=== PATIENT | female | born 1930 | race Caucasian/White ===

== ENCOUNTER 2016-08-16 14:42 | Inpatient (IN) ==
[2016-08-16] MEDS ORDERED: LOPERAMIDE 2 MG CAPSULE PO STA (15:10)
[2016-08-16] MEDS ORDERED: ONDANSETRON 4 MG/2 ML VIAL IV STA (15:10)
[2016-08-16] MEDS ORDERED: SODIUM CHLORIDE 0.9% 2,000 ML IV STA (15:10)
[2016-08-16] MEDS ORDERED: metroNIDAZOLE INJ 500 MG in PREMIX 1 EACH IV STA (15:10)
[2016-08-16] MEDS ORDERED: DICYCLOMINE 20 MG/2 ML AMP IM ONE ×2 (15:10→15:51)
--- NOTE | 2016-08-16 15:19 | Emergency Department Note ---
Arrival - Arrival Chief Complaint: Weakness ED Nursing Triage Note: c/o n/d and weakness for 3 days Mode of Arrival: Stretcher Limitations: No Limitations Source: Patient Time Seen by Provider: 08/16/16 15:10 - History of Present Illness HPI Narrative: This 86-year-old white female custodial resident presents with a week of progressive nausea vomiting and significant diarrhea with prolific loose watery bowel movements. Associated with this has been lower abdominal cramping, low- grade temperature and chills as well as progressive weakness and general. Patient denies melena or bright red blood per rectum. She also denies a history of peptic ulcer disease, diverticulitis, pancreatitis, and inflammatory bowel disease. She does have, however, a history of prior recurrent infectious gastroenteritis. She currently appears chronically ill but in no acute medical distress. Onset (ago): day(s) (Patient presents 3 days post onset of symptoms) Allergies/Adverse Reactions: Allergies Allergy/AdvReac Type Severity Reaction Status Date / Time penicillin G Allergy RASH Verified 07/28/15 09:57 aspirin [From Aggrenox] AdvReac Headache Verified 07/28/15 09:57 dipyridamole [From Aggrenox] AdvReac Headache Verified 07/28/15 09:57 Home Medications: Home Medications Medication Instructions Recorded Confirmed Type Apixaban [Eliquis] 2.5 mg PO 0630,1700 07/28/15 08/16/16 History Brimonidine 0.1% Oph Soln 1 drop BOTH EYES 0630,2100 07/28/15 08/16/16 History [Alphagan P 0.1% Oph Soln] Cholecalciferol (Vitamin D3) 2,000 unit PO DAILY 07/28/15 08/16/16 History [Vitamin D3] Docusate Sodium Cap [Colace Cap] 100 mg PO 0900,2100 07/28/15 08/16/16 History Glimepiride [Amaryl] 2 mg PO 0630 07/28/15 08/16/16 History HYDROcodone/ACETAMIN 5-325 [[place] 1 tablet PO Q6H PRN 07/28/15 08/16/16 History 5-325] LORazepam TAB [Ativan Tab] 0.5 mg PO 0600,1800 07/28/15 08/16/16 History Loratadine [Claritin] 10 mg PO DAILY 07/28/15 08/16/16 History Magnesium Chloride [Magnesium Dr] 64 mg PO BID 07/28/15 08/16/16 History Metformin HCl [Metformin HCl ER] 1,000 mg PO 0630 07/28/15 08/16/16 History Metoprolol Tartrate 50 mg PO DAILY 07/28/15 08/16/16 History Multivitamin [One Daily] 1 each PO DAILY 07/28/15 08/16/16 History Omeprazole 20 mg PO DAILY 07/28/15 08/16/16 History Phenytoin ER Cap [Dilantin Cap] 100 mg PO TID 07/28/15 08/16/16 History Zolpidem [Ambien] 5 mg PO BEDTIME PRN 07/28/15 08/16/16 History Biofreeze 0.2%-3.5% 1 applic TOP BID PRN 08/16/16 08/16/16 History Gel/Jelly(Camphor/Menthol) Buspirone HCl [Buspirone HCl] 15 mg PO 0900,2100 08/16/16 08/16/16 History Cranberry Conc/C/Bacill Coag [Azo 1 each PO DAILY 08/16/16 08/16/16 History Cranberry Tablet] Levothyroxine Sodium 100 mcg PO DAILY 08/16/16 08/16/16 History Magnesium Hydroxide [Milk of 30 ml PO DAILY PRN 08/16/16 08/16/16 History Magnesia] Nitroglycerin Sl Tab [Nitrostat] 0.4 mg SL Q5M PRN 08/16/16 08/16/16 History Ondansetron Tab [Zofran Tab] 8 mg PO DAILY PRN 08/16/16 08/16/16 History Propylene Glycol [Systane Balance] 2 drop BOTH EYES BID 08/16/16 08/16/16 History dimenhyDRINATE [Dimenhydrinate] 50 mg PO Q4H PRN 08/16/16 08/16/16 History Review of System - Review of System 12 point system: reviewed and no additional remarkable complaints except as stated - Review of System Constitutional: Present: as per HPI Gastrointestinal: Present: as per HPI Medical,Surgical,& Family Hx - Medical History Cardio: History of: Hypertension Psychological: History of: Anxiety Disorders, Depression Neurology: History of: Dementia, Seizures HEENT: History of: Glaucoma Endocrine: History of: Diabetes Mellitus (NIDDM), Dyslipidemia, Thyroid Disorder , Endocrine Problems - Surgical History Abdominal Surgeries: Surgical HX of: Cholecystectomy Reproductive Surgeries: Surgical HX of;: Hysterectomy - Social History Smoking Status: Never smoker Frequency of Alcohol Use: None Type of Drug Use: None Exam Physical Examination: GENERAL: Chronically ill-appearing elderly white female in no acute distress. HEENT: Normocephalic. No trauma. Moist mucous membranes. EOMI. PERRLA. ENT NML NECK: Supple. No adenopathy. CARDIAC: Regular. No murmurs. Heart rate 135 CHEST: Clear to auscultation. No respiratory distress. O2 sat 95% ABDOMEN: Soft. Tender lower quadrants with hyperactive bowel sounds. EXTREMITIES: No trauma. Normal ROM. No pedal edema. SKIN: No diaphoresis. No rash. NEURO: Alert. Oriented to person place not so much time. Motor, sensory, vibratory intact. No focal deficits. Vital Signs: Vital Signs Temperature 99.9 F H 08/16/16 14:43 Pulse Rate 147 H 08/16/16 14:43 Respiratory Rate 18 08/16/16 16:02 Blood Pressure 126/99 08/16/16 14:43 O2 Sat by Pulse Oximetry 95 08/16/16 14:43 Course - Reevaluation(s) Reevaluation #1: Discussed with patient the need for admission due to her colitis and new onset atrial fibrillation. - Consultations Consultation #1: Discussed with the hospitalist service who will admit for further evaluation and treatment. Results - Labs CBC & BMP: 08/16/16 15:53 08/16/16 15:53 Labs: I have reviewed the laboratory noted the elevated white blood cell count, depressed potassium, and negative cardiac enzymes. I have also noted the borderline d-dimer. - Impressions EKG: Atrial fibrillation and rapid ventricular response of 140 with evidence of right ventricular hypertrophy and poor R-wave progression anteriorly versus indeterminant aged anterior MD. - Diagnostic Findings Procedure: CT Abdomen and Pelvis: image reviewed by me, report reviewed by me ( Nonspecific colitis, diverticulosis.) Disposition Clinical Impression: Nonspecific colitis, C. difficile, No onset atrial fibrillation, Cystitis Case discussed with: patient Disposition: Still a Patient Condition: Guarded Time of Disposition: 19:55
[2016-08-16] MEDS ORDERED: ONDANSETRON 4 MG/2 ML VIAL ONE (15:50)
[2016-08-16] MEDS ORDERED: LOPERAMIDE 2 MG CAPSULE ONE (15:50)
[2016-08-16] MEDS ORDERED: metroNIDAZOLE 500 MG/100 ML PREMIX IV ONE (15:50)
[2016-08-16 16:01] LABS: Basophils % 0.3 % (0.0-0.8); Eosinophils # 0.1 10*3/uL (0.0-0.87); Eosinophils % 0.6 % (0.00-10.9); Hematocrit 36.8 VOL% (35.7-47.0); Hemoglobin 12.2 GM/DL (12.0-16.0); Immature Granulocytes % 0.9 %; Immature Granulocytes Absolute 0.11 #; Lymphocytes # 0.5 10*3/uL (1.4-4.0); Lymphocytes % 4.1 % (21.3-54.2); Mean Corpuscular HGB Conc 33.2 GM/DL (32-36); Mean Corpuscular Hemoglobin 31 PG (27-34); Mean Corpuscular Volume 93.9 FL (87-102); Mean Platelet Volume 10.4 FL (9.6-12.0); Monocytes # 1.7 10*3/uL (0.11-0.8); Monocytes % 14.1 % (1.7-12.7); Neutrophils # 9.9 10*3/uL (1.4-7.4); Platelet Count 237 T/CUMM (130-400); Red Blood Count 3.92 MC/CUMM (3.8-5.5); Red Cell Distribution Width 13.3 % (9.3-17.3); White Blood Count 12.3 T/CUMM (4-12)
[2016-08-16] MEDS ORDERED: DILTIAZEM 50 MG/10 ML VIAL IV STA (16:04)
--- NOTE | 2016-08-16 16:04 | EKG Report ---
Stationary ECG Study [facility] ER Test Date: 08/16/2016 4:03:18 PM Pat Name: SANTOS XIE Department: Room: 122 Gender: F Tile Roofer: : 1930 Requested by: Steven Ward Order Number: [id number] Reading MD: WILLY ALMANZA Intervals [facility] Rate: 143 P: 999 DC: 0 QRS: 171 QRSD: 129 T: 12 QT: 287 QTc: 370 Interpretive Statements ATRIAL FIBRILLATION WITH RAPID VENTRICULAR RESPONSE WITH ABERRANT CONDUCTION OR VENTRICULAR PREMATURE COMPLEXES POSSIBLE RIGHT VENTRICULAR HYPERTROPHY ANTEROLATERAL MYOCARDIAL INFARCTION, POSSIBLY RECENT Electronically Signed On 08-20-16 17:18:39 CDT by WILLY ALMANZA [email or web address]
[2016-08-16] MEDS ORDERED: DILTIAZEM 50 MG/10 ML VIAL IV ONE (16:05)
[2016-08-16 16:21] LABS: Lactic Acid 2.6 MMOL/L (0.4-2.0)
[2016-08-16 16:24] LABS: Alanine Aminotransferase 10 U/L (13-56); Albumin 2.9 G/DL (3.4-5.0); Alkaline Phosphatase 98 U/L (45-117); Amylase 10 U/L (25-115); Aspartate Amino Transferase 10 U/L (0-37); Blood Urea Nitrogen 19 MG/DL (7-18); Calcium 8.3 MG/DL (8.5-10.1); Glucose 162 MG/DL (74-106); Osmolality,Calculated 280.7 MOS/KG (273-304); Potassium 3.3 MMOL/L (3.5-5.1); Sodium 138 MMOL/L (136-145); Total Protein 6.4 G/DL (6.4-8.3)
[2016-08-16 16:35] LABS: Apearance,Urine Slightly Hazy (Clear); Bacteria,Urine Many /HPF (Few); Bilirubin,Urine Negative (Negative); Blood, Urine Negative (Negative); Glucose,Urine (UA) Negative (Negative); Ketones,Urine Negative (Negative); Mucus,Urine Occasional /LPF (Occasional); Nitrite,Urine Positive (Negative); Protein,Urine Negative; RBC,Urine <1 /HPF (0-4); Squamous Epithelial Cell,Urine Occasional /HPF (0-10); Urine Color Yellow (Yellow); Urine Specific Gravity 1.013 (1.001-1.035); Urine Urobilinogen < 2.0 EU/DL (0.2-1.0); WBC,Urine 8 /HPF (0-6)
[2016-08-16] MEDS ORDERED: DILTIAZEM 100 MG VIAL.ADD IV ONE (16:35)
[2016-08-16] MEDS ORDERED: SODIUM CHLORIDE 0.9% 100 ML IV ONE (16:35)
[2016-08-16] MEDS ORDERED: methylPREDNISolone SOD SUC 125 MG/2 ML VIAL ONE (16:39)
[2016-08-16] MEDS ORDERED: methylPREDNISolone SOD SUC 125 MG/2 ML VIAL IV STA (16:39)
[2016-08-16] MEDS ORDERED: LEVOFLOXACIN INJ 750 MG in PREMIX 1 EACH IV STA (16:53)
[2016-08-16] MEDS ORDERED: LEVOFLOXACIN INJ 150 ML IV ONE (17:11)
[2016-08-16] MEDS ORDERED: ACETAMINOPHEN 500 MG TABLET PO STA (17:15)
[2016-08-16] MEDS ORDERED: ACETAMINOPHEN 500 MG TABLET ONE (17:16)
[2016-08-16 17:50] LABS: Band Neutrophils 2 % (0-10); Lymphocytes 8 % (20-55); Segmented Neutrophils 77 % (50-85); Total Cells Counted 100
[2016-08-16] MEDS ORDERED: LORazepam 2 MG/1 ML VIAL ONE (18:06)
[2016-08-16 18:08] LABS: Platelet Estimate Normal
[2016-08-16] MEDS ORDERED: LORazepam 2 MG/1 ML VIAL IV STA (18:16)
--- NOTE | 2016-08-16 19:14 | CT Report ---
History: Small bowel obstruction. Progressive nausea, vomiting, diarrhea Date: 08/16/2016 Study: CT abdomen and pelvis with contrast Comparison exam: CT abdomen and pelvis February 04, 2012 Technique: Spiral CT sections were obtained from the lung bases to the pubic symphysis following oral contrast and 100 mL Omnipaque [address] exam was performed using one or more of the following dose reduction techniques: Automated exposure control, adjustment of the mA and/or kV according to patient size, or use of iterative reconstruction technique. CT abdomen: There is cardiomegaly. There is mild bilateral pleural effusion. There is no leighann pneumonia. There is cardiomegaly. The gallbladder is surgically absent. There is no focal hepatic mass. There is diffuse pancreatic atrophy. The spleen is unremarkable. There is no adrenal mass. There is bilateral renal excretion without hydronephrosis. There is no aneurysm of the moderately calcified abdominal aorta. There is some mild scattered colon wall thickening compatible with nonspecific colitis. There are some occasional scattered diverticula as well. There is no gross small bowel obstruction. There is no abscess or pneumoperitoneum. There is degenerative disease of the lumbar spine. There is no gross lymphadenopathy CT pelvis: A Mcallister catheter is positioned with its balloon in the lumen of the urinary bladder. There is no obvious soft tissue mass or significant abnormal pelvic fluid. Impression: There is some scattered colon wall thickening, suggesting nonspecific mild colitis. No leighann small bowel obstruction. Diverticulosis. Mild bilateral pleural effusion PROCEDURE INTERPRETED AT [facility] DEPARTMENT OF RADIOLOGY Final Report Signed by: Dr. Arline Bautista
[2016-08-16 19:37] LABS: D-Dimer 0.6 MG/L FEU; PT Patient Result 10.7 SECS
[2016-08-16] MEDS ORDERED: POTASSIUM BICARB EFFERVESCENT 25 MEQ TABLET PO ONE ×2 (19:51→23:30)
--- NOTE | 2016-08-16 21:10 | Hospitalist History & Physical ---
Assessment and Plan - Time spent with patient Time spent with patient: Greater than 30 minutes (1) Atrial fibrillation with rapid ventricular response Status: Acute Assessment and plan: At home she takes Lopressor 50mg daily. She was tachycardic to 140s on arrival to the emergency department and started on a diltiazem infusion. Continue diltiazem infusion at this time. Likely exacerbated secondary to infectious illness and dehydration. Current Visit: Yes (2) Colitis, acute Status: Acute Assessment and plan: Given that she is a shelter resident, was treated with clindamycin in the last 2 weeks, and has leukocytosis and mildly elevated lactate I am highly concerned that she has C. difficile colitis. Treat empirically with metronidazole. She may have a very mild UTI but I will hold further antibiotics other than those targeted to C. difficile until her diarrhea is better controlled so as not to encourage the C. difficile. She received 1 dose of levofloxacin in the emergency department. Hold further Imodium and Bentyl until C. difficile is definitively ruled out so as not to increase her risk of megacolon. C. difficile toxin pending. Current Visit: Yes (3) Dehydration Status: Acute Assessment and plan: Secondary to profuse diarrhea. Hold Lopressor, losartan, HCTZ. Status post 2 L IV fluid bolus in the emergency department continue gentle maintenance infusion. Current Visit: Yes (4) Lactic acidosis Status: Acute Assessment and plan: Very mild, trend with fluids Current Visit: Yes (5) Hypokalemia Status: Acute Assessment and plan: Likely secondary to diarrhea, replace with oral potassium Current Visit: Yes (6) Lower abdominal pain Status: Acute Assessment and plan: Fever secondary to colitis, given nitrite positive UA we will keep UTI in mind. Holding off on antibiotics to target the UTI as above with respect to C. difficile. Current Visit: Yes (7) Seizure disorder Status: Chronic Assessment and plan: Continue home Dilantin. Holding Ativan. Current Visit: Yes (8) Diabetes mellitus Status: Chronic Assessment and plan: Hold home metformin and glimepiride while in the hospital. Serial fingerstick glucose and low-dose lispro sliding scale insulin. Current Visit: No Qualifiers: Diabetes mellitus type: type 2 (9) Hypertension Status: Chronic Assessment and plan: Borderline hypotension at this time, monitor on the diltiazem. hold home losartan HCTZ and Lopressor Current Visit: No Qualifiers: Hypertension type: essential hypertension Qualified Code(s): I10 - Essential (primary) hypertension (10) Hypothyroidism Status: Chronic Assessment and plan: Continue levothyroxine at home dose, check TSH Current Visit: Yes History of Present Illness Chief complaint: Diarrhea History of present illness: Ms. Griffin is a 86 year old female with past medical history of hypertension, diabetes, depression/anxiety, dementia, A. fib, hypothyroidism, seizure disorder , CVA, glaucoma that presented with a complaint of diarrhea. Onset sudden. Duration since Thursday. Severity - very severe with dehydration and too numerous to count episodes daily. Quality mostly liquid and brown with some formed elements. No blood or melena noted. Associated with some central lower abdominal cramping, subjective fevers/chills/generalized weakness. She also endorses nausea and "spitting up" but not necessarily vomiting. She states that this is chronic and ever since she had her stroke 2 years ago she gives a little bit of a confusing history where somebody told her she had a tumor and others told her that she did not in her brain. But she is taking Ativan for this at the shelter. She is a resident of a shelter and at her baseline ambulates with a walker. She just buried her in March. She is a very good historian and able to remember her particular medicines including Eliquis and Dilantin. Upon review of the shelter records from [facility] she was treated with clindamycin starting about 3 weeks ago for cellulitis of her left leg. 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 Her CODE STATUS on the shelter paperwork is full code but in discussing with the patient she indicated that she would not want to be placed on life support machines. When I asked her specifically about chest compressions her response was "if you want to." I recommended to Mrs. Griffin that chest compressions were not likely to restore to her a good quality of life if her heart did indeed stop and she was agreeable to holding these interventions. I called her son and healthcare power of deputy attorney general Hawk Griffin and updated him on her condition. We specifically discussed CODE STATUS and he agreed that a DO NOT RESUSCITATE plan of care was consistent with the mother that he knows. He agreed that this would be her CODE STATUS at this time. Upon arrival to the [place] emergency department she was also noted to have atrial fibrillation with rapid ventricular response and was placed on a diltiazem infusion. She was also given potassium supplement, levofloxacin and metronidazole. I have personally reviewed the workup in the emergency department including data and imaging and I have discussed her case with the emergency room providers. Home Medications Medication Instructions Recorded Confirmed Type Apixaban [Eliquis] 2.5 mg PO 0630,1700 07/28/15 08/16/16 History Brimonidine 0.1% Oph Soln 1 drop BOTH EYES 0630,2100 07/28/15 08/16/16 History [Alphagan P 0.1% Oph Soln] Cholecalciferol (Vitamin D3) 2,000 unit PO DAILY 07/28/15 08/16/16 History [Vitamin D3] Docusate Sodium Cap [Colace Cap] 100 mg PO 0900,2100 07/28/15 08/16/16 History Glimepiride [Amaryl] 2 mg PO 0630 07/28/15 08/16/16 History HYDROcodone/ACETAMIN 5-325 [[place] 1 tablet PO Q6H PRN 07/28/15 08/16/16 History 5-325] LORazepam TAB [Ativan Tab] 0.5 mg PO 0600,1800 07/28/15 08/16/16 History Loratadine [Claritin] 10 mg PO DAILY 07/28/15 08/16/16 History Magnesium Chloride [Magnesium Dr] 64 mg PO BID 07/28/15 08/16/16 History Metformin HCl [Metformin HCl ER] 1,000 mg PO 0630 07/28/15 08/16/16 History Metoprolol Tartrate 50 mg PO DAILY 07/28/15 08/16/16 History Multivitamin [One Daily] 1 each PO DAILY 07/28/15 08/16/16 History Omeprazole 20 mg PO DAILY 07/28/15 08/16/16 History Phenytoin ER Cap [Dilantin Cap] 100 mg PO TID 07/28/15 08/16/16 History Zolpidem [Ambien] 5 mg PO BEDTIME PRN 07/28/15 08/16/16 History Biofreeze 0.2%-3.5% 1 applic TOP BID PRN 08/16/16 08/16/16 History Gel/Jelly(Camphor/Menthol) Buspirone HCl [Buspirone HCl] 15 mg PO 0900,2100 08/16/16 08/16/16 History Cranberry Conc/C/Bacill Coag [Azo 1 each PO DAILY 08/16/16 08/16/16 History Cranberry Tablet] Levothyroxine Sodium 100 mcg PO DAILY 08/16/16 08/16/16 History Magnesium Hydroxide [Milk of 30 ml PO DAILY PRN 08/16/16 08/16/16 History Magnesia] Nitroglycerin Sl Tab [Nitrostat] 0.4 mg SL Q5M PRN 08/16/16 08/16/16 History Ondansetron Tab [Zofran Tab] 8 mg PO DAILY PRN 08/16/16 08/16/16 History Propylene Glycol [Systane Balance] 2 drop BOTH EYES BID 08/16/16 08/16/16 History dimenhyDRINATE [Dimenhydrinate] 50 mg PO Q4H PRN 08/16/16 08/16/16 History Allergies Allergy/AdvReac Type Severity Reaction Status Date / Time penicillin G Allergy RASH Verified 07/28/15 09:57 aspirin [From Aggrenox] AdvReac Headache Verified 07/28/15 09:57 dipyridamole [From Aggrenox] AdvReac Headache Verified 07/28/15 09:57 Medical,Surgical,& Family Hx - Medical History Cardio: History of: Hypertension Psychological: History of: Anxiety Disorders, Depression Neurology: History of: Cerebrovascular Accident, Dementia, Seizures, TIA, Neurologocal Cancer (not currently receiving tx) HEENT: History of: Glaucoma Endocrine: History of: Diabetes Mellitus (NIDDM), Dyslipidemia, Thyroid Disorder , Endocrine Problems Respiratory: History of: Respiratory Problems (She is on 2 L nasal cannula at the shelter) Hematology: History of: Clotting Problems (DVT) - Surgical History Abdominal Surgeries: Surgical HX of: Cholecystectomy Reproductive Surgeries: Surgical HX of;: Hysterectomy Additional Surgical History: Leg surgery - Family History Family History: Reports;: Family Cancer (Mother GI cancer) - Social History Smoking Status: Never smoker Frequency of Alcohol Use: None Type of Drug Use: None Marital Status: Lives With:: care home Functional capacity: uses cane/walker Review of systems: - Constitutional Constitutional: Present: Fever, chills, generalized weakness absent: Night sweats, weight loss - EENT Eyes: Present: Glaucoma absent: Acutely blurry vision Ears: Present: Hard of hearing absent: Acutely decreased hearing, ear pain Nose, mouth and throat: Absent: nasal congestion, sore throat - Cardiovascular Cardiovascular: Present: Palpitations absent: chest pain at rest, chest pain with activity, dyspnea on exertion, edema, orthopnea - Respiratory Respiratory: Absent: cough, dyspnea, hemoptysis - Gastrointestinal Gastrointestinal: Present: Lower abdominal pain, diarrhea, nausea absent: Constipation, dysphagia, hematemesis, hematochezia, melena - Genitourinary Genitourinary: Absent: difficulty urinating, dysuria, hematuria - Musculoskeletal Musculoskeletal: Absent: arthralgias, joint swelling, myalgias - Neurological Neurological: Present: Headache, diabetic neuropathy absent: confusion, dizziness, focal weakness, syncope - Psychiatric Psychiatric: Absent: anxiety, depression - Endocrine Endocrine: Absent: cold intolerance, heat intolerance, polydipsia, polyuria - Hematologic/Lymphatic Hematologic/Lymphatic: Absent: easy bleeding, easy bruising, lymphadenopathy Exam - Constitutional General appearance: other (Elderly white female lying on stretcher pleasant and cooperative) Exam: - Eye Eye exam: Present: EOMI. Absent: conjunctival injection, scleral icterus Pupils: Present: ANUSHA - ENT ENT exam: Present: normal external ear exam, normal oropharynx - Expanded ENT Exam Mouth exam: Present: Dry, poor dentition - Neck Neck exam: Present: normal inspection. Absent: lymphadenopathy, thyromegaly - Respiratory Respiratory exam: Present: Dependently decreased breath sounds, otherwise clear to auscultation bilaterally. Absent: accessory muscle use, rales, rhonchi, wheezes - Cardiovascular Cardiovascular exam: Present: Irregularly irregular rhythm, mild tachycardia. Absent: diastolic murmur, systolic murmur - Expanded Cardiovascular Exam Peripheral pulses: Easily palpable radial pulses, nonpalpable PT pulses bilaterally - GI/Abdominal GI/Abdominal exam: Present: normal bowel sounds, soft, ventral hernia. Absent: distended, hyperactive bowel sounds, hypoactive bowel sounds, organomegaly, tenderness, rebound - Extremities Exam Extremities exam: Present: edema of right lower extremity - Neurological Exam Neurological exam: Present: alert, oriented X3, CN II-XII intact. Absent: motor sensory deficit - Psychiatric Psychiatric exam: Present: normal affect - Skin Skin exam: Present: warm, dry. Absent: diaphoretic, rash Results - Labs CBC & BMP: 08/16/16 15:53 08/16/16 15:53 - EKG EKG shows: tachycardia, atrial fibrillation - Diagnostic Findings Procedure: CT Abdomen and Pelvis: report reviewed by me
[2016-08-16] MEDS ORDERED: GLUCAGON 1 MG VIAL IM PRN (22:10)
[2016-08-16] MEDS ORDERED: NITROGLYCERIN SL 0.4 MG TABLET SL PRN (22:10)
[2016-08-16] MEDS ORDERED: DEXTROSE 50% 25 GM/50 ML VIAL IV PRN (22:10)
[2016-08-16] MEDS ORDERED: ONDANSETRON 4 MG/2 ML VIAL IV PRN (22:10)
[2016-08-16] MEDS: SODIUM CHLORIDE 0.9% 1,000 ML IV SCH (22:56)
[2016-08-16] MEDS: PHENYTOIN ER 100 MG CAPSULE PO SCH (22:57)
[2016-08-16] MEDS: busPIRone 15 MG TABLET PO SCH (22:57)
[2016-08-16] MEDS: metroNIDAZOLE INJ 500 MG in PREMIX 1 EACH IV SCH (22:57)
[2016-08-16] MEDS ORDERED: ENOXAPARIN 100 MG/ML SYRINGE SUBCUT SCH (23:00)
[2016-08-16] MEDS: INSULIN LISPRO 100 UNIT/ML SUBCUT SCH (23:07)
[2016-08-16 23:09] LABS: Magnesium 1.4 MG/DL (1.8-2.4); Thyroid Stimulating Hormone 2.17 uIU/ml (0.358-3.74)
[2016-08-17] MEDS: POLYVINYL ALCOHOL 1.4% OPH SOLN 15 ML BOTTLE BOTH EYES SCH ×3 (00:20→21:17)
[2016-08-17 05:33] LABS: Basophils # 0.1 10*3/uL (0.0-0.2); Basophils % 0.5 % (0.0-0.8); Eosinophils # 0.1 10*3/uL (0.0-0.87); Hematocrit 27.7 VOL% (35.7-47.0); Hemoglobin 9.5 GM/DL (12.0-16.0); Immature Granulocytes Absolute 0.11 #; Lymphocytes # 0.9 10*3/uL (1.4-4.0); Lymphocytes % 7.6 % (21.3-54.2); Mean Corpuscular HGB Conc 34.3 GM/DL (32-36); Mean Corpuscular Hemoglobin 31 PG (27-34); Mean Corpuscular Volume 90.8 FL (87-102); Mean Platelet Volume 10.6 FL (9.6-12.0); Monocytes % 17.2 % (1.7-12.7); Neutrophils # 8.3 10*3/uL (1.4-7.4); Neutrophils % 72.7 % (38.7-73.9); Platelet Count 204 T/CUMM (130-400); Red Blood Count 3.05 MC/CUMM (3.8-5.5); Red Cell Distribution Width 13.3 % (9.3-17.3); White Blood Count 11.5 T/CUMM (4-12)
[2016-08-17] MEDS ORDERED: MAGNESIUM SULF RIDER 2 GM in PREMIX 1 EACH IV ONE (05:48)
[2016-08-17 06:06] LABS: Albumin 2.1 G/DL (3.4-5.0); Bilirubin,Total 0.6 MG/DL (0.2-1.0); Calcium 7.2 MG/DL (8.5-10.1); Osmolality,Calculated 277.5 MOS/KG (273-304); Potassium 2.9 MMOL/L (3.5-5.1); Total Protein 4.5 G/DL (6.4-8.3)
[2016-08-17 06:44] LABS: Band Neutrophils 5 % (0-10); Lymphocytes 3 % (20-55); Platelet Estimate Normal; Segmented Neutrophils 81 % (50-85)
[2016-08-17 06:45] LABS: Total Cells Counted 100
[2016-08-17] MEDS: metroNIDAZOLE INJ 500 MG in PREMIX 1 EACH IV SCH (07:40)
[2016-08-17] MEDS: INSULIN LISPRO 100 UNIT/ML SUBCUT SCH ×4 (08:09→21:22)
--- NOTE | 2016-08-17 08:43 | EKG Report ---
Stationary ECG Study [facility] Test Date: 08/17/2016 7:44:04 AM Pat Name: SANTOS XIE Department: Room: 122 Gender: F Slot Floor Person: GIN : 1930 Requested by: Jones Brambila Order Number: [id number] Reading MD: WILLY ALMANZA Intervals [address] Rate: 96 P: 999 [place]: 0 QRS: 157 QRSD: 141 T: -3 QT: 403 QTc: 456 Interpretive Statements ATRIAL FIBRILLATION MARKED RIGHT AXIS DEVIATION INTRAVENTRICULAR CONDUCTION DELAY ANTERIOR-LATERAL MYOCARDIAL INFARCTION, AGE UNKNOWN Electronically Signed On 08-21-16 09:26:54 CDT by WILLY ALMANZA [email or web address]
[2016-08-17] MEDS ORDERED: PANTOPRAZOLE 40 MG TABLET PO SCH (09:00)
--- NOTE | 2016-08-17 09:02 | XRay Report ---
History: Shortness of breath Date: 08/17/2016 Study: Chest x-ray AP portable Comparison exam: July 28, 2015 chest x-ray There is mild cardiomegaly. The mediastinal contours are stable. There is moderate aortic arch calcification. The pulmonary vasculature is not engorged. The lungs are generally clear for shallow breath. There is no gross pleural effusion. There is osteopenia and mild thoracic spondylosis. Impression: No acute cardiopulmonary process. Mild cardiomegaly PROCEDURE INTERPRETED AT [facility] DEPARTMENT OF RADIOLOGY Final Report Signed by: Dr. Arline Bautista
[2016-08-17] MEDS: PHENYTOIN ER 100 MG CAPSULE PO SCH ×3 (09:59→21:17)
[2016-08-17] MEDS: LEVOTHYROXINE 100 MCG TABLET PO SCH (09:59)
[2016-08-17] MEDS: busPIRone 15 MG TABLET PO SCH ×2 (09:59→21:17)
--- NOTE | 2016-08-17 11:20 | Hospitalist Progress Note ---
Assessment and Plan (1) Clostridium difficile colitis Status: Acute Assessment and plan: Impression: 1. C. difficile colitis, present on admission 2. Atrial fibrillation with controlled ventricular rate 3. 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 We will continue metronidazole for the C. difficile colitis. This note was completed using [employer] voice recognition software. There may be kettle fry cook operator errors as a result. Current Visit: Yes Hospitalist: Subjective Interval history: Follow-up C. difficile colitis. The [facility] the [facility], following a cerebral infarction. She says that she has received a few courses of antibiotics over the past few months. She developed some diarrhea about a week ago, and finally presented here. She was ultimately found to have C. difficile colitis. 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 She also reports a history of a "brain tumor," and is apparently seen neurology here and in [place] for evaluation of that. Review of our records here shows that the CT scan performed last year shows some old cerebral infarctions, but no evidence of any sort of brain tumor. She reports a history of 2 cerebral infarcts, and several TIAs. She has been stable in the ICU. Ventricular rate has been about 100 or so. She received a bolus of IV diltiazem, but did not require an infusion. Exam - Constitutional Vitals: Period Temp Pulse Resp BP Sys/Bryant Pulse Ox Last 24 Hr 97 F-98.9 F 84-99 17-31 108-131/38-90 94-99 She is afebrile. Heart is irregular with a soft systolic murmur. Chest is clear. Abdomen soft and moderately tender with no mass. She is awake and alert, and moves all 4 extremities. Results - Labs CBC & BMP: 08/17/16 05:02 08/17/16 05:02 - EKG EKG shows: atrial fibrillation (Atrial fibrillation with ventricular rate of about 100 and nonspecific intraventricular conduction delay.) Quality Measures - VTE Contraindication to Pharmacological VTE Prophylaxis: Already on Theraputic Agent , No Prophylaxis Needed Contraindication to Mechanical VTE Prophylaxis: Current Diagnosis of DVT
[2016-08-17] MEDS: metroNIDAZOLE 500 MG TABLET PO SCH ×3 (12:25→21:17)
[2016-08-17] MEDS: SODIUM CHLORIDE 0.9% 1,000 ML IV SCH (12:45)
[2016-08-17] MEDS ORDERED: MENTHOL TOP PRN (13:24)
[2016-08-17] MEDS ORDERED: dimenhyDRINATE 50 MG TABLET PO PRN (13:24)
[2016-08-17] MEDS ORDERED: CAMPHOR TOP PRN (13:24)
[2016-08-17] MEDS ORDERED: MAGNESIUM HYDROXIDE SUSP 30 ML UDCUP PO PRN (13:24)
[2016-08-17] MEDS ORDERED: ZALEPLON 5 MG CAPSULE PO PRN (13:24)
[2016-08-17] MEDS ORDERED: [UNRECOGNIZED DRUG - OTHER] TOP PRN (13:24)
[2016-08-17] MEDS ORDERED: ONDANSETRON 4 MG TABLET PO PRN (13:24)
[2016-08-17] MEDS ORDERED: PHENYTOIN ER 100 MG CAPSULE PO SCH (15:00)
[2016-08-17] MEDS: ACETAMINOPHEN 325 MG TABLET PO PRN (15:18)
[2016-08-17] MEDS: DESITIN 4OZ/NYSTATIN 15 GRAM MIXTURE PASTE TOP SCH ×2 (17:15→21:23)
[2016-08-17] MEDS: APIXABAN 2.5 MG TABLET PO SCH (17:15)
[2016-08-17] MEDS: LORazepam 0.5 MG TABLET PO SCH (17:15)
[2016-08-17] MEDS: MAGNESIUM CHLORIDE 64 MG TABLET PO SCH (21:17)
[2016-08-17] MEDS: BRIMONIDINE 0.1% OPH SOLN 5 ML BOTTLE BOTH EYES SCH (21:18)
[2016-08-17] MEDS: DOCUSATE SODIUM 100 MG CAPSULE PO SCH (21:20)
[2016-08-18] MEDS: metFORMIN 500 MG TABLET PO SCH (06:18)
[2016-08-18] MEDS: GLIMEPIRIDE 2 MG TABLET PO SCH (06:19)
[2016-08-18] MEDS: LORazepam 0.5 MG TABLET PO SCH ×2 (06:19→17:19)
[2016-08-18] MEDS: APIXABAN 2.5 MG TABLET PO SCH ×2 (06:19→17:19)
[2016-08-18] MEDS: BRIMONIDINE 0.1% OPH SOLN 5 ML BOTTLE BOTH EYES SCH ×2 (06:27→21:26)
[2016-08-18] MEDS ORDERED: METOPROLOL TARTRATE 50 MG TABLET PO SCH (09:00)
[2016-08-18] MEDS: LEVOTHYROXINE 100 MCG TABLET PO SCH (09:02)
[2016-08-18] MEDS: MULTIVITAMIN (CENTRUM) TABLET PO SCH (09:02)
[2016-08-18] MEDS: POLYVINYL ALCOHOL 1.4% OPH SOLN 15 ML BOTTLE BOTH EYES SCH ×2 (09:02→21:26)
[2016-08-18] MEDS: DOCUSATE SODIUM 100 MG CAPSULE PO SCH ×2 (09:02→21:29)
[2016-08-18] MEDS: busPIRone 15 MG TABLET PO SCH ×2 (09:02→21:28)
[2016-08-18] MEDS: PHENYTOIN ER 100 MG CAPSULE PO SCH ×3 (09:03→21:28)
[2016-08-18] MEDS: metroNIDAZOLE 500 MG TABLET PO SCH ×3 (09:03→21:28)
[2016-08-18] MEDS: PANTOPRAZOLE 40 MG TABLET PO SCH (09:03)
[2016-08-18] MEDS: MAGNESIUM CHLORIDE 64 MG TABLET PO SCH ×2 (09:03→21:28)
[2016-08-18] MEDS: DESITIN 4OZ/NYSTATIN 15 GRAM MIXTURE PASTE TOP SCH ×2 (09:04→21:39)
[2016-08-18] MEDS: INSULIN LISPRO 100 UNIT/ML SUBCUT SCH ×4 (09:04→21:29)
[2016-08-18] MEDS ORDERED: POTASSIUM CHLORIDE 20 MEQ TABLET PO PRN (10:32)
[2016-08-18] MEDS ORDERED: POTASSIUM CHLORIDE RIDER 10 MEQ in PREMIX 1 EACH IV PRN (10:33)
--- NOTE | 2016-08-18 10:34 | Hospitalist Progress Note ---
<Tye Poe - Last Filed: 08/18/16 11:05> Assessment and Plan (1) Clostridium difficile colitis Status: Acute Assessment and plan: Pt. on contact precautions. Pt. still complains of diarrhea. Last stool this am. Pt. states they have started to become more formed. Pt on PO flagyl. Pt.'s diet will be advanced to full liquid. Current Visit: Yes (2) Atrial fibrillation with rapid ventricular response Status: Acute Assessment and plan: Pt's rate is controlled. She is on anticoagulation. Current Visit: Yes (3) Hypokalemia Status: Acute Assessment and plan: K+ is 2.9 from labs on 08/17. Will order stat BMP to assess today's level. K+ replacement put in place. Recheck in am and replace if needed. Will continue to monitor. Current Visit: Yes (4) Diabetes mellitus Status: Chronic Assessment and plan: SSI ordered. Will continue to monitor. Current Visit: No Qualifiers: Diabetes mellitus type: type 2 (5) Hypertension Status: Chronic Assessment and plan: Pt's blood pressure has been stable. Will continue to monitor. Current Visit: No Qualifiers: Hypertension type: essential hypertension Qualified Code(s): I10 - Essential (primary) hypertension Hospitalist: Subjective Interval history: Pt. seen and examined. No apparent distress noted. No complaints overnight but pt has had diarrhea stool this am. K+ low this am. Will replace. Pt is inquiring about advancing diet. Will see how patient tolerates full liquids. Exam - Constitutional Vitals: Period Temp Pulse Resp BP Sys/Bryant Pulse Ox Last 24 Hr 97.7 F-99.5 F 78-96 18-25 109-137/46-96 94-99 General appearance: normal weight, no acute distress - Head Head exam: Present: normal inspection, normocephalic - Eye Eye exam: Present: EOMI Pupils: Present: ANUSHA - ENT ENT exam: Present: other (heard of hearing) - Neck Neck exam: Present: normal inspection - Respiratory Respiratory exam: Present: clear to auscultation bilaterally - Cardiovascular Cardiovascular exam: Present: irregular rhythm - GI/Abdominal GI/Abdominal exam: Present: normal bowel sounds, soft. Absent: tenderness - Extremities Exam Extremities exam: Present: normal capillary refill, full ROM. Absent: edema - Neurological Exam Neurological exam: Present: alert, oriented X3, normal gait - Psychiatric Psychiatric exam: Present: normal affect, normal mood - Skin Skin exam: Present: normal color, warm, dry Results - Labs CBC & BMP: 08/17/16 05:02 08/17/16 05:02 Lab Results: I have reviewed the past 24 hour labs Quality Measures - VTE Contraindication to Pharmacological VTE Prophylaxis: Already on Theraputic Agent , No Prophylaxis Needed Contraindication to Mechanical VTE Prophylaxis: Current Diagnosis of DVT <Yeimi Rao - Last Filed: 08/18/16 15:42> Assessment and Plan (1) Clostridium difficile colitis Status: Acute Assessment and plan: Continue Flagyl p.o. 3 times daily, restart IV fluids with potassium supplementation Current Visit: Yes (2) Hypokalemia Status: Acute Assessment and plan: Continue IV and p.o. supplementation recheck potassium in a.m. Current Visit: Yes (3) Diabetes mellitus Status: Chronic Assessment and plan: Amaryl 2 mg p.o. daily, blood sugars between 91 and 211, continue metformin for now but monitor creatinine. Current Visit: No Qualifiers: Diabetes mellitus type: type 2 (4) Hypertension Status: Chronic Assessment and plan: Continue metoprolol 50 twice daily, blood pressure controlled Current Visit: No Qualifiers: Hypertension type: essential hypertension Qualified Code(s): I10 - Essential (primary) hypertension (5) Dementia Status: Acute Current Visit: No (6) Atrial fibrillation Status: Acute Assessment and plan: Rate controlled on metoprolol and continue Eliquis Current Visit: No (7) Seizure disorder Status: Chronic Assessment and plan: Continue Dilantin 100 mg p.o. 3 times daily Current Visit: Yes (8) Hypothyroidism Status: Chronic Assessment and plan: Continue levothyroxine at 100 g daily Current Visit: Yes Hospitalist: Subjective Interval history: Patient seen and examined. Progress note is reviewed and edited. Patient is still having diarrhea but that is improving. She was not on IV fluids when I walked into the room but this needs to be restarted. Her potassium is extremely low. Patient is from a correction. Exam - Constitutional Vitals: Period Temp Pulse Resp BP Sys/Bryant Pulse Ox Last 24 Hr 97.7 F-99.5 F 76-92 18-20 109-137/46-72 96-99 - Neurological Exam Neurological exam: Present: oriented X3 (2) Results - Labs CBC & BMP: 08/18/16 10:52 08/18/16 10:52 - Diagnostic Findings Procedure: Chest x-ray: report reviewed by me (Nothing acute mild cardiomegaly)
[2016-08-18 11:07] LABS: Basophils # 0.1 10*3/uL (0.0-0.2); Basophils % 0.4 % (0.0-0.8); Eosinophils # 0.4 10*3/uL (0.0-0.87); Eosinophils % 3.1 % (0.00-10.9); Hematocrit 32.6 VOL% (35.7-47.0); Hemoglobin 10.8 GM/DL (12.0-16.0); Immature Granulocytes % 0.9 %; Immature Granulocytes Absolute 0.11 #; Lymphocytes # 0.9 10*3/uL (1.4-4.0); Lymphocytes % 7.2 % (21.3-54.2); Mean Corpuscular HGB Conc 33.1 GM/DL (32-36); Mean Corpuscular Hemoglobin 31 PG (27-34); Mean Corpuscular Volume 93.7 FL (87-102); Mean Platelet Volume 10.2 FL (9.6-12.0); Monocytes # 1.1 10*3/uL (0.11-0.8); Monocytes % 9.4 % (1.7-12.7); Neutrophils # 9.5 10*3/uL (1.4-7.4); Platelet Count 247 T/CUMM (130-400); Red Blood Count 3.48 MC/CUMM (3.8-5.5); Red Cell Distribution Width 13.4 % (9.3-17.3)
[2016-08-18 11:30] LABS: Band Neutrophils 3 % (0-10); Eosinophils 2 % (0-10); Lymphocytes 6 % (20-55); Platelet Estimate Adequate; Segmented Neutrophils 78 % (50-85); Total Cells Counted 100
[2016-08-18 11:31] LABS: Hypochromasia 1+
[2016-08-18 11:43] LABS: Calcium 7.3 MG/DL (8.5-10.1); Magnesium 1.9 MG/DL (1.8-2.4); Osmolality,Calculated 284.5 MOS/KG (273-304); Potassium 2.9 MMOL/L (3.5-5.1)
[2016-08-18] MEDS ORDERED: TUBERCULIN SKIN TEST 0.1 ML SYRINGE INTRADERM ONE (11:51)
[2016-08-18] MEDS ORDERED: ALBUTEROL 0.63 MG/3 ML NEB RESP TX SCH (15:00)
[2016-08-18] MEDS: POTASSIUM CHLORIDE 20 MEQ TABLET PO SCH ×3 (16:00→19:34)
[2016-08-18] MEDS: POTASSIUM CHLORIDE INJ 40 MEQ in SODIUM CHLORIDE 0.45% 1,000 ML IV SCH (17:19)
[2016-08-18] MEDS: METOPROLOL TARTRATE 50 MG TABLET PO SCH (21:27)
[2016-08-19] MEDS: POTASSIUM CHLORIDE INJ 40 MEQ in SODIUM CHLORIDE 0.45% 1,000 ML IV SCH ×5 (03:28→23:19)
[2016-08-19 05:57] LABS: Calcium 7.5 MG/DL (8.5-10.1); Magnesium 1.9 MG/DL (1.8-2.4); Osmolality,Calculated 277.4 MOS/KG (273-304); Potassium 3.5 MMOL/L (3.5-5.1)
[2016-08-19] MEDS: LORazepam 0.5 MG TABLET PO SCH ×2 (06:15→21:42)
[2016-08-19] MEDS: metFORMIN 500 MG TABLET PO SCH (06:15)
[2016-08-19] MEDS: APIXABAN 2.5 MG TABLET PO SCH ×2 (06:15→16:51)
[2016-08-19] MEDS: GLIMEPIRIDE 2 MG TABLET PO SCH (06:15)
[2016-08-19] MEDS: BRIMONIDINE 0.1% OPH SOLN 5 ML BOTTLE BOTH EYES SCH ×2 (09:09→21:43)
[2016-08-19] MEDS: INSULIN LISPRO 100 UNIT/ML SUBCUT SCH ×4 (09:09→21:43)
[2016-08-19] MEDS: POLYVINYL ALCOHOL 1.4% OPH SOLN 15 ML BOTTLE BOTH EYES SCH ×2 (09:09→21:42)
[2016-08-19] MEDS: MAGNESIUM CHLORIDE 64 MG TABLET PO SCH ×2 (09:10→21:41)
[2016-08-19] MEDS: LEVOTHYROXINE 100 MCG TABLET PO SCH (09:10)
[2016-08-19] MEDS: PHENYTOIN ER 100 MG CAPSULE PO SCH ×3 (09:10→21:42)
[2016-08-19] MEDS: MULTIVITAMIN (CENTRUM) TABLET PO SCH (09:10)
[2016-08-19] MEDS: PANTOPRAZOLE 40 MG TABLET PO SCH (09:11)
[2016-08-19] MEDS: DOCUSATE SODIUM 100 MG CAPSULE PO SCH ×2 (09:11→21:41)
[2016-08-19] MEDS: METOPROLOL TARTRATE 50 MG TABLET PO SCH ×2 (09:12→21:42)
[2016-08-19] MEDS: busPIRone 15 MG TABLET PO SCH ×2 (09:12→21:42)
[2016-08-19] MEDS: DESITIN 4OZ/NYSTATIN 15 GRAM MIXTURE PASTE TOP SCH ×2 (09:12→21:41)
[2016-08-19] MEDS: metroNIDAZOLE 500 MG TABLET PO SCH ×3 (09:12→21:41)
--- NOTE | 2016-08-19 13:46 | Hospitalist Progress Note ---
Assessment and Plan (1) Clostridium difficile colitis Status: Acute Assessment and plan: Continue Flagyl p.o. 3 times daily, cont IV fluids with potassium supplementation Current Visit: Yes (2) Hypokalemia Status: Acute Assessment and plan: Resolved with replacement recheck in a.m. Current Visit: Yes (3) Diabetes mellitus Status: Chronic Assessment and plan: Continue metformin and Amaryl Current Visit: No Qualifiers: Diabetes mellitus type: type 2 (4) Hypertension Status: Chronic Assessment and plan: Continue metoprolol 50 twice daily, blood pressure controlled Current Visit: No Qualifiers: Hypertension type: essential hypertension Qualified Code(s): I10 - Essential (primary) hypertension (5) Dementia Status: Acute Current Visit: No (6) Atrial fibrillation Status: Acute Assessment and plan: Rate controlled on metoprolol and continue Eliquis Current Visit: No (7) Seizure disorder Status: Chronic Assessment and plan: Continue Dilantin 100 mg p.o. 3 times daily Current Visit: Yes (8) Hypothyroidism Status: Chronic Assessment and plan: Continue levothyroxine at 100 g daily Current Visit: Yes (9) UTI (urinary tract infection) Status: Acute Assessment and plan: three days of cipro Current Visit: Yes Hospitalist: Subjective Interval history: patient still rate controlled afib, bowel movements have slowed down and she is starting to eat. We can probably go back to NH in am. Sat up in chair Exam - Constitutional Vitals: Period Temp Pulse Resp BP Sys/Bryant Pulse Ox Last 24 Hr 97.3 F-99.6 F 76-91 16-20 128-141/67-87 96-98 Exam: Heart Rate-[IRR] Lungs-[CTAB] GI-[+bs soft, NT] Ext-[no edema] Neuro [Motor 5/5], [alert and oriented times 2] psych [normal mood and affect] General [no acute distress] Results - Labs CBC & BMP: 08/18/16 10:52 08/19/16 05:08 Lab Results: I have reviewed the past 24 hour labs Labs: Urine culture positive for E. coli Quality Measures - VTE Contraindication to Pharmacological VTE Prophylaxis: Already on Theraputic Agent , No Prophylaxis Needed Contraindication to Mechanical VTE Prophylaxis: Current Diagnosis of DVT
[2016-08-19] MEDS: CIPROFLOXACIN 250 MG TABLET PO SCH ×2 (14:43→21:42)
[2016-08-20 05:26] LABS: Calcium 7.6 MG/DL (8.5-10.1); Osmolality,Calculated 274.5 MOS/KG (273-304); Potassium 4.4 MMOL/L (3.5-5.1)
[2016-08-20] MEDS: BRIMONIDINE 0.1% OPH SOLN 5 ML BOTTLE BOTH EYES SCH (05:44)
[2016-08-20] MEDS: APIXABAN 2.5 MG TABLET PO SCH (05:45)
[2016-08-20] MEDS: GLIMEPIRIDE 2 MG TABLET PO SCH (05:45)
[2016-08-20] MEDS: metFORMIN 500 MG TABLET PO SCH (05:45)
[2016-08-20] MEDS: LORazepam 0.5 MG TABLET PO SCH (05:45)
[2016-08-20] MEDS: INSULIN LISPRO 100 UNIT/ML SUBCUT SCH ×2 (09:19→12:48)
[2016-08-20] MEDS: busPIRone 15 MG TABLET PO SCH (09:24)
[2016-08-20] MEDS: POLYVINYL ALCOHOL 1.4% OPH SOLN 15 ML BOTTLE BOTH EYES SCH (09:24)
[2016-08-20] MEDS: PHENYTOIN ER 100 MG CAPSULE PO SCH (09:25)
[2016-08-20] MEDS: MULTIVITAMIN (CENTRUM) TABLET PO SCH (09:25)
[2016-08-20] MEDS: CIPROFLOXACIN 250 MG TABLET PO SCH (09:25)
[2016-08-20] MEDS: metroNIDAZOLE 500 MG TABLET PO SCH (09:26)
[2016-08-20] MEDS: PANTOPRAZOLE 40 MG TABLET PO SCH (09:26)
[2016-08-20] MEDS: METOPROLOL TARTRATE 50 MG TABLET PO SCH (09:26)
[2016-08-20] MEDS: MAGNESIUM CHLORIDE 64 MG TABLET PO SCH (09:26)
[2016-08-20] MEDS: DESITIN 4OZ/NYSTATIN 15 GRAM MIXTURE PASTE TOP SCH (09:26)
[2016-08-20] MEDS: DOCUSATE SODIUM 100 MG CAPSULE PO SCH (09:27)
[2016-08-20] MEDS: LEVOTHYROXINE 100 MCG TABLET PO SCH (09:27)
--- NOTE | 2016-08-20 09:57 | Discharge Summary ---
<Tye Poe - Last Filed: 08/20/16 10:22> Hospital Course - Hospital Course Hospital Course: Ms. Griffin is a 86-year-old white female half-way resident with a history of infectious gastroenteritis, afib, UTI, htn, hyperlipidemia, dementia, and depression that presented to the ED on with a week of progressive nausea vomiting and significant diarrhea with prolific loose watery bowel movements. Pt. was also noted to have lower abdominal cramping, low-grade temperature and chills as well as progressive weakness and general. The patient was admitted for further evaluation. Pt was given a diltizaem push for rate control of afib and it has since been controlled. Pt was also placed on contact precautions and treated for clostridium difficile colitis with antibiotic therapy (Flagyl) and IVF. Pt. was also treated for hypokalemia which has since resolved. Pt. is stable now and has started to eat. She will be discharged back to the half-way. Diagnosis - Discharge Diagnosis (1) Clostridium difficile colitis Status: Acute (2) Atrial fibrillation with rapid ventricular response Status: Acute (3) Hypokalemia Status: Acute (4) Diabetes mellitus Status: Chronic (5) Hypertension Status: Chronic Discharge Plan - Discharge Data Disposition: Disch/Xfer to Snf - Discharge Medications New Potassium Chloride Cap/Tab [K Dur] 20 meq PO DAILY #7 tablet Vancomycin HCl [Vancomycin Cap] 125 mg PO Q6H #40 capsule metroNIDAZOLE TAB [Flagyl Cap/Tab] 500 mg PO TID #30 tablet Acetaminophen Tab [Tylenol Tab] 325 mg PO Q4H PRN #0 tablet PRN Reason: fever, headache/body aches Ciprofloxacin Tab [Cipro Tab] 250 mg PO BID #6 tablet Continue Brimonidine 0.1% Oph Soln [Alphagan P 0.1% Oph Soln] 1 drop BOTH EYES 0630, 2100 Magnesium Chloride [Magnesium Dr] 64 mg PO BID Loratadine [Claritin] 10 mg PO DAILY Multivitamin [One Daily] 1 each PO DAILY Cholecalciferol (Vitamin D3) [Vitamin D3] 2,000 unit PO DAILY Glimepiride [Amaryl] 2 mg PO 0630 Metformin HCl [Metformin HCl ER] 1,000 mg PO 0630 Apixaban [Eliquis] 2.5 mg PO 0630,1700 Phenytoin ER Cap [Dilantin Cap] 100 mg PO TID Docusate Sodium Cap [Colace Cap] 100 mg PO 0900,2100 Magnesium Hydroxide [Milk of Magnesia] 30 ml PO DAILY PRN PRN Reason: Constipation Nitroglycerin Sl Tab [Nitrostat] 0.4 mg SL Q5M PRN PRN Reason: Chest Pain Buspirone HCl 15 mg PO 0900,2100 Cranberry Conc/C/Bacill Coag [Azo Cranberry Tablet] 1 each PO DAILY Propylene Glycol [Systane Balance] 2 drop BOTH EYES BID Biofreeze 0.2%-3.5% Gel/Jelly(Camphor/Menthol) 1 applic TOP BID PRN PRN Reason: Pain HYDROcodone/ACETAMIN 5-325 [[place] 5-325] 1 tablet PO Q6H PRN #30 PRN Reason: Pain Zolpidem [Ambien] 5 mg PO BEDTIME PRN #30 PRN Reason: Insomnia Ondansetron Tab [Zofran Tab] 8 mg PO DAILY PRN PRN Reason: Nausea/Vomiting Levothyroxine Sodium 100 mcg PO DAILY LORazepam TAB [Ativan Tab] 0.5 mg PO 0600,1800 #60 Changed Metoprolol Tartrate 50 mg PO BID #60 Omeprazole 40 mg PO BID #60 Discontinued dimenhyDRINATE [Dimenhydrinate] 50 mg PO Q4H PRN PRN Reason: Nausea/Vomiting - Follow Up or Referral - Forms/Instructions Exam - Constitutional Vitals: Period Temp Pulse Resp BP Sys/Bryant Pulse Ox Last 24 Hr 96.7 F-98.8 F 64-77 18-20 120-161/61-80 94-100 Discharge Results Procedures and tests throughout hospitalization: Pending Orders 08/16/16 22:34 Blood Culture Routine 08/21/16 04:00 CBC [Comp Blood Count Auto Diff] IN AM Labs on day of discharge: Labs from last 24 hours 08/20/16 08/20/16 08/19/16 07:31 04:33 19:56 Sodium 139 Potassium 4.4 Chloride 109 H Carbon Dioxide 24 Anion Gap 10.4 BUN 11 Creatinine 0.70 GFR Calculation 82 BUN/Creatinine Ratio 15.00 Glucose 84 POC Glucose 124 H 214 H Calculated Osmolality 274.5 Calcium 7.6 L 08/19/16 08/19/16 15:12 11:28 Sodium Potassium Chloride Carbon Dioxide Anion Gap BUN Creatinine GFR Calculation BUN/Creatinine Ratio Glucose POC Glucose 246 H 289 H Calculated Osmolality Calcium Preliminary micro results at discharge 08/16/16 22:34 Blood Culture - Preliminary Blood No growth at 3 days 08/16/16 22:34 Blood Culture - Preliminary Blood No growth at 3 days DS: Provider Date of admission: 08/16/16 20:37 Primary care physician: . No PCP Attending physician on admission: Burton Gomez MD Consults: 08/18/16 11:51 Consult to Physical Therapy [CONS] Routine Reason for Physical Therapy: Weakness Discharging clinician: Tye Poe NP <Yeimi Rao - Last Filed: 08/20/16 11:25> Hospital Course - Hospital Course Hospital Course: Patient seen and examined. Hospital course reviewed and edited. Patient was diagnosed with C. difficile colitis. She was treated with p.o. Flagyl. Urine culture obtained on 08/16/16 grew out E. coli sensitive to Cipro. Because she currently has C. difficile and only can treat her for 3 days. I will add p.o. vancomycin every 6 hours for 10 days. Patient's potassium was low due to diarrhea. Her blood sugars are not well controlled. She is currently on metformin and Amaryl. She is eating better today. Her atrial fib is rate controlled on metoprolol. She is currently on Eliquis. She is mildly anemic but it stable. She does have dementia and seizure disorder both of which are stable. Patient will return to the half-way today. She is still having diarrhea about 3 times a day. Because we are adding Cipro the diarrhea may temporarily get worse. Continue Flagyl for 10 more days and po vancomycin for 10 days. - Time spent with patient Time with patient DS: Greater than 30 minutes (50 min) Diagnosis - Discharge Diagnosis (1) Clostridium difficile colitis Status: Acute (2) Hypokalemia Status: Acute (3) Diabetes mellitus Status: Chronic (4) Hypertension Status: Chronic (5) Dementia Status: Acute (6) Atrial fibrillation Status: Acute (7) Seizure disorder Status: Chronic (8) Hypothyroidism Status: Chronic (9) UTI (urinary tract infection) Status: Acute Discharge Plan - Discharge Data Condition at Discharge: Stable Discharge Diet: diabetic diet Activity: resume usual activities as tolerated Hygiene: no restrictions Weight Bearing at Discharge: full weight bearing Exam - Constitutional General appearance: normal weight, no acute distress - Respiratory Respiratory exam: Present: clear to auscultation bilaterally. Absent: rhonchi, wheezes - Cardiovascular Cardiovascular exam: Present: regular rate and rhythm. Absent: systolic murmur - GI/Abdominal GI/Abdominal exam: Present: normal bowel sounds, soft. Absent: tenderness
[2016-08-20] MEDS: POTASSIUM CHLORIDE INJ 40 MEQ in SODIUM CHLORIDE 0.45% 1,000 ML IV SCH (10:18)
[2016-08-20 12:03] VITALS: BP 123/60
[2016-08-20] MEDS: ACETAMINOPHEN 325 MG TABLET PO PRN (12:54)
== END 2016-08-20 14:07 | disposition home or self-care (01) | DRG 372 ==
LOC: EDUNIT# → EDBD → N.ED 14:42 → N.EDINP 20:37 → SUATTDRO 20:37 → N.CC 21:45 → N.TELEN 08-17 13:24
PROVIDERS: ADMIT Internal Medicine Geriatric Medicine; ATTEND Internal Medicine